=== PATIENT | female | born 1970 | race Two or more races ===

== ENCOUNTER 2024-08-27 10:43 | Emergency (ER) | payer OTHER ==
[~2024-08-27] VITALS: Ht 170.2 cm; Wt 72.6 kg
[~2024-08-27 10:43] MED LIST: CIPRO500 MG PO; FERRO-TIME325 MG PO; IRON1TAB4 PO; LEVSIN/SL0.125 MG PO; TYLENOL-CODEINE1 TAB PO
[2024-08-27] MEDS ORDERED: FAMOtidine 10 MG/ML (4ML VIAL) IV PUSH STA (12:38)
[2024-08-27] MEDS ORDERED: ONDANSETRON HCL 2 MG/ML VIAL IV STA (12:39)
[2024-08-27] MEDS ORDERED: ONDANSETRON HCL 2 MG/ML VIAL ONE (12:50)
[2024-08-27] MEDS ORDERED: FAMOTIDINE/PF 20 MG/2 ML VIAL ONE (12:50)
[2024-08-27 13:17] LABS: HEMATOCRIT 40.6 % (36.0-45.00); HEMOGLOBIN 13.7 g/dL (12.0-15.00); MEAN CELL VOLUME 82.7 fL (80.00-100.00); MEAN CORPUSCULAR HGB CONC 33.8 g/dl (32.0-36.0); PLATELET COUNT 238 K/uL (150-450); RED CELL DISTRIBUTION WIDTH 13.5 % (11.5-14.5)
[2024-08-27 13:36] LABS: CREATININE SERUM 0.76 mg/dL (0.55-1.02); GFR 79.91; POTASSIUM 3.59 mEq/L (3.5-5.1)
== END 2024-08-27 13:51 | disposition home or self-care (01) ==
LOC: ER 10:46
PROVIDERS: General Practice
DX: B34.9 Viral infection, unspecified (principal)

== ENCOUNTER 2024-09-18 13:35 | Emergency (ER) | payer OTHER ==
[~2024-09-18] VITALS: Ht 170.2 cm; Wt 72.6 kg
== END 2024-09-18 17:14 | disposition home or self-care (01) ==
LOC: ER 13:37
DX: H60.8X1 Other otitis externa, right ear (principal)

== ENCOUNTER 2025-01-12 19:56 | Emergency (ER) | payer OTHER ==
[~2025-01-12] VITALS: Ht 170.2 cm; Wt 72.6 kg
[2025-01-12] MEDS ORDERED: ACETAMINOPHEN 500 MG GEL..CAP PO ONE (21:15)
[2025-01-12] MEDS ORDERED: GUAIFENESIN 200 MG/10 ML BLIST.PACK PO ONE (21:15)
[2025-01-12 21:19] LABS: BASO % 0.3 % (0.1-1.2); EOS # 0.02 (0.04-0.54); EOS % 0.3 % (0.7-7.0); HEMATOCRIT 36.1 % (34.1-44.9); HEMOGLOBIN 11.9 g/dL (11.2-15.7); LYMPH # 1.02 (1.18-3.74); LYMPH % 15.6 % (19.3-53.1); MEAN CORPUSCULAR HEMOGLOBIN 27.1 pg (25.6-32.2); MONO # 0.92 (0.24-0.82); NEUT # 4.55 (1.56-6.13); NEUT % 69.5 % (34.0-71.1); PLATELET COUNT 226 K/uL (163-369); RED BLOOD COUNT 4.39 M/uL (3.93-5.22); RED CELL DISTRIBUTION WIDTH 12.4 % (11.6-14.4)
[2025-01-12 21:52] LABS: INFLUENZA A AG NEGATIVE (NEGATIVE)
[2025-01-12 22:00] LABS: COVID-19 AG POSITIVE (NEGATIVE)
== END 2025-01-12 22:53 | disposition home or self-care (01) ==
LOC: ER 20:10
PROVIDERS: General Practice
DX: U07.1 COVID-19 (principal)